=== PATIENT | male | born 1990 | race African-American/Black ===

== ENCOUNTER 2020-08-22 08:01 | Emergency (ER) | payer OTHER ==
[~2020-08-22] VITALS: Ht 182.9 cm; Wt 83.9 kg
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
[2020-08-22] MEDS ORDERED: FLEXERIL PO (08:50)
[2020-08-22] MEDS ORDERED: TYLENOL325 M1 PO (08:50)
[2020-08-22] MEDS ORDERED: NAPROSYN500 MG PO (08:50)
[2020-08-22 08:55] VITALS: BP 130/55
== END 2020-08-22 09:03 | disposition home or self-care (01) ==
LOC: ER 08:01
DX: S16.1XXA Strain of muscle, fascia and tendon at neck level, initial encounter (principal); V49.9XXA Car occupant (driver) (passenger) injured in unspecified traffic accident, initial encounter; Y93.89 Activity, other specified; Y92.89 Other specified places as the place of occurrence of the external cause; Y99.8 Other external cause status